=== PATIENT | male | born 1995 | race Hispanic/Latino ===

== ENCOUNTER 2021-07-23 04:36 | Emergency (ER) | payer OTHER, BC, SELFPAY ==
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
[2021-07-23 04:41] VITALS: BP 132/82; PULSE 96; RESP 16; TEMP 37.1; O2SAT 99
[2021-07-23] MEDS: SODIUM CHLORIDE 0.9% IV 1,000 ML 999 ML IV CONT (05:11)
[2021-07-23] MEDS: TETANUS,DIPHTHERIA,AC PERTUSSIS ADULT (0.5 ML) BOOSTRIX IM (05:14)
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
[2021-07-23 05:25] LABS: Basophils Percent Auto 0.2 % (0.2-1.2); Eosinophils Percent Auto 0.1 % (0-4.4); Hematocrit 45.3 % (42.0-52.0); Hemoglobin 15.7 g/dL (14.0-18.0); Immature Granulocyte Absolute 0.08 K/mm3 (0.00-0.031); Immature Granulocyte Percent A 0.5 % (0-0.5); Lymphocytes Percent Auto 10.4 % (18.3-44.2); Mean Corpuscular HGB Conc 34.7 g/dl (32-36); Mean Corpuscular Hemoglobin 29.8 pg (26-34); Mean Platelet Volume 9.6 fl (7.4-10.4); Monocytes Absolute Auto 0.8 K/mm3 (0.1-0.6); Neutrophils Absolute Auto 13.7 K/mm3 (1.3-6.7); Neutrophils Percent Auto 83.8 % (45.5-73.1); Platelet Count Result 298 k/mm3 (150-375); Red Blood Count 5.27 M/mm3 (4.6-6.20); Red Cell Distribution Width 12.3 % (11.5-14.5); White Blood Count 16.4 K/mm3 (4.5-10.0)
[2021-07-23 05:34] LABS: Alanine Aminotransferase 24 U/L (4-50); Albumin Level 4.8 g/dL (3.5-5.1); Alkaline Phosphatase 70 U/L (38-126); Anion Gap 14 mmol/L (8-16); Aspartate Amino Transferase 37 U/L (17-59); Bilirubin,Total 0.2 mg/dL (0.2-1.3); Blood Urea Nitrogen 12 mg/dL (9-20); Calcium 9.1 mg/dL (8.4-10.2); Carbon Dioxide 24 mmol/L (22-30); Chloride 101 mmol/L (98-107); Estimated CRCL calculation 127 ml/min; Estimated Glomerular Filt Rate > 60; Glucose 125 mg/dL (65-110); Potassium 3.9 mmol/L (3.4-5.0); Sodium 139 mmol/L (137-145)
[2021-07-23 05:38] LABS: Prothrombin Time 12.9 Seconds (11.1-14.7)
[2021-07-23 05:39] LABS: Partial Thromboplastin Time 25.8 SECONDS (22.3-36.8)
--- NOTE | 2021-07-23 05:41 | PC.NURSE ---
Pt to CT and XR via stretcher at this time. Pt alert and upright on stretcher during transport out of ED.
[2021-07-23 05:44] LABS: Ethanol 159 mg/dL (<10)
[2021-07-23 06:14] VITALS: BP 131/85; PULSE 102; RESP 18; O2SAT 96
--- NOTE | 2021-07-23 06:42 | PC.NURSE ---
EDP at bedside for debridement of pts right hand.
[2021-07-23] MEDS: CEPHALEXIN 500 MG CAPSULE PO (07:03)
== END 2021-07-23 07:39 | disposition home or self-care (01) ==
PROVIDERS: Emergency Provider Emergency Medicine; PCP Family Medicine
DX: S61.421A Laceration with foreign body of right hand, initial encounter (principal); S00.85XA Superficial foreign body of other part of head, initial encounter; S50.812A Abrasion of left forearm, initial encounter; S80.212A Abrasion, left knee, initial encounter; S80.211A Abrasion, right knee, initial encounter; S20.412A Abrasion of left back wall of thorax, initial encounter; Z23 Encounter for immunization; V28.4XXA Motorcycle driver injured in noncollision transport accident in traffic accident, initial encounter
CPT/HCPCS: 36415; 70450; 71260; 72125; 73110; 73130; 73564; 74177; 80053; 80307; 85025; 85610; 85730; 90471; 90715; 96360; 96361; 99284; A9270; J7030; Q9967